=== PATIENT | female | born 1975 | race Caucasian/White ===

== ENCOUNTER 2022-04-06 13:31 | Inpatient (IN) ==
[2022-04-06 14:42] LABS: ABS Eosinophils 0.1 10^3/ul (0-0.6); ABS Monocytes 0.3 10^3/ul (0-0.8); ABS Neutrophils 7.5 10^3/ul (1.5-7.7); Eosinophil % 1.1 %; Hematocrit 34 % (35-47); Hemoglobin 11.2 g/dL (12.0-16.0); Lymphocyte % 11.6 %; Mean Corpuscular HGB Conc 33 g/dL (31-36); Mean Corpuscular Hemoglobin 27 pg (27-31); Mean Corpuscular Volume 83 fL (80-97); Mean Platelet Volume 7.9 fL (7.4-10.4); Nucleated Red Blood Cells % 0.1; Platelet Count 262 10^3/uL (150-450); Red Blood Count 4.12 10^6 /uL (3.70-4.87); Red Cell Distribution Width 16 % (10-15)
[2022-04-06 15:23] LABS: Albumin 4.2 g/dL (3.2-5.2); CO2 Carbon Dioxide 22 mmol/L (22-32); Calcium 8.8 mg/dL (8.6-10.3); Chloride 107 mmol/L (101-111); Sodium 138 mmol/L (135-145)
[2022-04-06 15:29] LABS: ALT 37 U/L (7-52); Acetaminophen < 15 mcg/mL; Albumin/Globulin Ratio 1.6 (1-3); Alcohol, S < 13 mg/dL (<13); Alkaline Phosphatase 97 U/L (35-149); Blood Urea Nitrogen 13 mg/dL (6-24); Globulin 2.7 g/dL (2-4); Glucose 131 mg/dL (70-100); Salicylate < 2.50 mg/dL (<30); Total Protein 6.9 g/dL (6.4-8.9); eGFR CKD-EPI 76.8 (>60)
[2022-04-06 15:37] LABS: Anion Gap 9 mmol/L (2-11)
[2022-04-06 16:24] LABS: HCG Pregnancy < 0.60 mIU/mL
[2022-04-06 16:32] LABS: TSH Ultra Thyroid Stim Horm 2.51 mcIU/mL (0.34-5.60)
[2022-04-06 19:27] LABS: Potassium Redraw 4.3 mmol/L (3.5-5.0)
[2022-04-06] MEDS ORDERED: Al Hydrox/Mg Hydrox/Simet LIQ 30 ML UDC PO PRN (21:06)
[2022-04-06] MEDS ORDERED: Nicotine GUM 2MG FRUIT FLAVOR PO PRN (22:00)
[2022-04-07 08:08] LABS: HDL Cholesterol 39.7 mg/dL
[2022-04-07] MEDS: Nicotine PATCH 14 MG/24 HR PATCH TRANSDERM SCH (10:56)
[2022-04-07] MEDS: Vitamin THERAPEUTIC TAB PO SCH (10:56)
[2022-04-07] MEDS ORDERED: Paliperidone SUSTENNA 234 MG/1.5 ML IM ONE (15:00)
[2022-04-07] MEDS: OLANZapine 10 mg TAB*ODT PO SCH (19:31)
[2022-04-08] MEDS ORDERED: OLANZapine 10 mg TAB*ODT PO PRN (08:46)
[2022-04-08] MEDS: Vitamin THERAPEUTIC TAB PO SCH (10:27)
[2022-04-08] MEDS: Nicotine PATCH 14 MG/24 HR PATCH TRANSDERM SCH (10:27)
[2022-04-08] MEDS: OLANZapine 10 mg TAB*ODT PO SCH (20:31)
[2022-04-09] MEDS: Nicotine PATCH 14 MG/24 HR PATCH TRANSDERM SCH (09:58)
[2022-04-09] MEDS: Vitamin THERAPEUTIC TAB PO SCH (09:58)
[2022-04-09] MEDS: OLANZapine 10 mg TAB*ODT PO SCH (20:50)
[2022-04-10] MEDS: Vitamin THERAPEUTIC TAB PO SCH (07:33)
[2022-04-10] MEDS: Nicotine PATCH 14 MG/24 HR PATCH TRANSDERM SCH (07:33)
[2022-04-10] MEDS: OLANZapine 10 mg TAB*ODT PO SCH (20:04)
[2022-04-11] MEDS: Nicotine PATCH 14 MG/24 HR PATCH TRANSDERM SCH (08:24)
[2022-04-11] MEDS: Vitamin THERAPEUTIC TAB PO SCH (08:24)
[2022-04-11] MEDS ORDERED: Paliperidone SUSTENNA 156 MG/1 ML IM ONE (09:39)
[2022-04-11 12:23] LABS: Hematocrit 33 % (35-47); Hemoglobin 10.8 g/dL (12.0-16.0)
[2022-04-12] MEDS: Vitamin THERAPEUTIC TAB PO SCH (07:54)
[2022-04-12] MEDS: Nicotine PATCH 14 MG/24 HR PATCH TRANSDERM SCH (07:54)
[2022-04-12 12:24] LABS: Chlamydia trachomatis NAA Negative (Negative); Neisseria gonorrhoeae (GC) NAA Negative (Negative)
[2022-04-13] MEDS: CMCS: NORETHINDRONE ACETATE 5 MG TAB (NF) PO SCH (07:55)
[2022-04-14] MEDS: CMCS: NORETHINDRONE ACETATE 5 MG TAB (NF) PO SCH (10:09)
[2022-04-15] MEDS: CMCS: NORETHINDRONE ACETATE 5 MG TAB (NF) PO SCH (08:41)
[2022-04-16] MEDS: CMCS: NORETHINDRONE ACETATE 5 MG TAB (NF) PO SCH (07:43)
[2022-04-17] MEDS: CMCS: NORETHINDRONE ACETATE 5 MG TAB (NF) PO SCH (07:37)
[2022-04-18] MEDS: CMCS: NORETHINDRONE ACETATE 5 MG TAB (NF) PO SCH (09:04)
[2022-04-19] MEDS: CMCS: NORETHINDRONE ACETATE 5 MG TAB (NF) PO SCH (08:22)
[2022-04-19] MEDS ORDERED: OLANZapine 10 mg TAB*ODT PO SCH (21:00)
[2022-04-20] MEDS: CMCS: NORETHINDRONE ACETATE 5 MG TAB (NF) PO SCH (08:17)
[2022-04-20] MEDS ORDERED: OLANZapine 5 mg TAB *ODT PO SCH (21:00)
[2022-04-21 08:07] VITALS: BP 171/81
[2022-04-21] MEDS: CMCS: NORETHINDRONE ACETATE 5 MG TAB (NF) PO SCH (09:15)
== END 2022-04-21 12:35 | disposition home or self-care (01) | DRG 750 ==
LOC: ED 13:31 → BSU 17:50
PROVIDERS: ADMIT Psychiatry & Neurology Psychiatry; ATTEND Psychiatry & Neurology Psychiatry